=== PATIENT | male | born 1965 | race Caucasian/White ===

== ENCOUNTER 2021-01-02 16:55 | Inpatient (IN) ==
[2021-01-02] MEDS: Divalproex (12 HR) 250 MG TABLET PO SCH (21:07)
[2021-01-02] MEDS: tiZANidine 4 MG TABLET PO SCH (21:08)
[2021-01-02] MEDS: Insulin LISPRO 300 UNITS/3 ML VIAL SUBQ SCH (21:14)
[2021-01-03] MEDS: Insulin LISPRO 300 UNITS/3 ML VIAL SUBQ SCH ×4 (08:36→21:23)
[2021-01-03] MEDS: Aspirin 81 MG TAB.CHEW PO SCH (08:37)
[2021-01-03] MEDS: *HR* Glimepiride 2 MG TABLET PO SCH (08:37)
[2021-01-03] MEDS: Folic Acid 1 MG TABLET PO SCH (08:37)
[2021-01-03] MEDS: rOPINIRole 1 MG TABLET PO SCH (08:37)
[2021-01-03] MEDS: CANAGLIFLOZIN 300 MG PO SCH (08:37)
[2021-01-03] MEDS: tiZANidine 4 MG TABLET PO SCH ×2 (08:37→21:20)
[2021-01-03] MEDS ORDERED: D5% in Water 1,000 ML IVC PRN (13:56)
[2021-01-03] MEDS ORDERED: Dextrose Gel 15 GM/37.5 ML TUBE PO PRN ×2 (13:56)
[2021-01-03] MEDS ORDERED: *HR* Dextrose 50 % in Water (Vial) 50 ML VIAL IVP PRN (13:56)
[2021-01-03] MEDS: Divalproex (12 HR) 250 MG TABLET PO SCH (21:21)
[2021-01-04 06:41] LABS: Hematocrit 43.6 % (37.5-50.1); Hemoglobin 14.5 g/dL (12.9-16.9); Mean Corpuscular HGB Conc 33.3 g/dL (31.6-35.5); Mean Corpuscular Volume 93.2 fL (83.0-100.0); Mean Platelet Volume 9.6 fL (9.4-12.4); Platelet Count 213 K/mcL (140-400); Red Blood Count 4.68 M/mcL (4.19-5.50); Red Cell Distribution Width 11.6 % (11.5-14.5); White Blood Count 8.1 K/mcL (4.3-11.1)
[2021-01-04 07:02] LABS: BUN/Creatinine Ratio 18 (6-26); Blood Urea Nitrogen 17 mg/dL (6-20); Calcium 8.6 mg/dL (8.6-10.3); Carbon Dioxide 28 mEq/L (23-29); Chloride 100 mEq/L (98-107); Glucose 223 mg/dL (70-105); Magnesium 1.9 mg/dL (1.6-2.6); Osmolality,Calculated 286 (280-300); Potassium 4.4 mEq/L (3.5-5.1); Sodium 134 mEq/L (136-145); eGFR For African Americans > 60 (> 60); eGFR For Non-African Americans > 60 (> 60)
[2021-01-04] MEDS: rOPINIRole 1 MG TABLET PO SCH (07:40)
[2021-01-04] MEDS: Insulin LISPRO 300 UNITS/3 ML VIAL SUBQ SCH ×4 (08:27→20:40)
[2021-01-04] MEDS: Aspirin 81 MG TAB.CHEW PO SCH (08:30)
[2021-01-04] MEDS: tiZANidine 4 MG TABLET PO SCH ×2 (08:30→20:39)
[2021-01-04] MEDS: Folic Acid 1 MG TABLET PO SCH (08:31)
[2021-01-04] MEDS: *HR* Glimepiride 2 MG TABLET PO SCH (08:31)
[2021-01-04] MEDS: Insulin DETEMIR 100 UNIT/ML X5UNITS SUBQ SCH ×2 (08:32→20:57)
[2021-01-04] MEDS: CANAGLIFLOZIN 300 MG PO SCH (09:06)
[2021-01-04] MEDS: Divalproex (12 HR) 250 MG TABLET PO SCH (20:39)
[2021-01-05] MEDS: Insulin LISPRO 300 UNITS/3 ML VIAL SUBQ SCH ×4 (07:22→21:58)
[2021-01-05] MEDS: rOPINIRole 1 MG TABLET PO SCH (08:29)
[2021-01-05] MEDS: tiZANidine 4 MG TABLET PO SCH ×2 (08:30→21:58)
[2021-01-05] MEDS: Aspirin 81 MG TAB.CHEW PO SCH (08:30)
[2021-01-05] MEDS: Folic Acid 1 MG TABLET PO SCH (08:30)
[2021-01-05] MEDS: *HR* Glimepiride 2 MG TABLET PO SCH (08:30)
[2021-01-05] MEDS: Insulin DETEMIR 100 UNIT/ML X5UNITS SUBQ SCH ×2 (08:33→21:58)
[2021-01-05] MEDS: CANAGLIFLOZIN 300 MG PO SCH (08:57)
[2021-01-05] MEDS: Divalproex (12 HR) 250 MG TABLET PO SCH (21:58)
[2021-01-06] MEDS: rOPINIRole 1 MG TABLET PO SCH (08:29)
[2021-01-06] MEDS: Folic Acid 1 MG TABLET PO SCH (08:29)
[2021-01-06] MEDS: *HR* Glimepiride 2 MG TABLET PO SCH (08:29)
[2021-01-06] MEDS: Aspirin 81 MG TAB.CHEW PO SCH (08:29)
[2021-01-06] MEDS: tiZANidine 4 MG TABLET PO SCH ×2 (08:29→22:09)
[2021-01-06] MEDS: Insulin LISPRO 300 UNITS/3 ML VIAL SUBQ SCH ×4 (08:30→22:10)
[2021-01-06] MEDS: Insulin DETEMIR 100 UNIT/ML X5UNITS SUBQ SCH ×2 (09:09→22:10)
[2021-01-06] MEDS: CANAGLIFLOZIN 300 MG PO SCH (09:10)
[2021-01-06] MEDS: Divalproex (12 HR) 250 MG TABLET PO SCH (22:08)
[2021-01-07] MEDS: *HR* Glimepiride 2 MG TABLET PO SCH (08:22)
[2021-01-07] MEDS: Folic Acid 1 MG TABLET PO SCH (08:22)
[2021-01-07] MEDS: rOPINIRole 1 MG TABLET PO SCH (08:22)
[2021-01-07] MEDS: Insulin DETEMIR 100 UNIT/ML X5UNITS SUBQ SCH ×2 (08:23→21:22)
[2021-01-07] MEDS: Insulin LISPRO 300 UNITS/3 ML VIAL SUBQ SCH ×4 (08:23→21:22)
[2021-01-07] MEDS: tiZANidine 4 MG TABLET PO SCH ×2 (08:23→21:21)
[2021-01-07] MEDS: CANAGLIFLOZIN 300 MG PO SCH (08:23)
[2021-01-07] MEDS: Aspirin 81 MG TAB.CHEW PO SCH (08:23)
[2021-01-07] MEDS: Divalproex (12 HR) 250 MG TABLET PO SCH (21:20)
[2021-01-07] MEDS: Melatonin 3 MG TABLET PO PRN (21:21)
[2021-01-08] MEDS: Insulin LISPRO 300 UNITS/3 ML VIAL SUBQ SCH ×4 (08:03→20:30)
[2021-01-08] MEDS: tiZANidine 4 MG TABLET PO SCH ×2 (08:04→20:30)
[2021-01-08] MEDS: Aspirin 81 MG TAB.CHEW PO SCH (08:05)
[2021-01-08] MEDS: CANAGLIFLOZIN 300 MG PO SCH (08:05)
[2021-01-08] MEDS: rOPINIRole 1 MG TABLET PO SCH (08:05)
[2021-01-08] MEDS: Folic Acid 1 MG TABLET PO SCH (08:05)
[2021-01-08] MEDS: *HR* Glimepiride 2 MG TABLET PO SCH (08:05)
[2021-01-08 08:26] LABS: Basophils # 0.1 K/mcL (0.0-0.2); Basophils % 0.7 %; Eosinophils # 0.1 K/mcL (0.0-0.6); Hematocrit 44.1 % (37.5-50.1); Hemoglobin 14.6 g/dL (12.9-16.9); Immature Granulocytes % 0.9 % (0-4); Lymphocytes # 2.5 K/mcL (0.6-4.6); Lymphocytes % 36.9 %; Mean Corpuscular HGB Conc 33.1 g/dL (31.6-35.5); Mean Corpuscular Hemoglobin 30.9 pg (28.0-33.3); Mean Corpuscular Volume 93.2 fL (83.0-100.0); Mean Platelet Volume 9.8 fL (9.4-12.4); Monocytes # 0.6 K/mcL (0.0-1.3); Neutrophils # 3.6 K/mcL (1.6-8.9); Platelet Count 205 K/mcL (140-400); Red Blood Count 4.73 M/mcL (4.19-5.50); Red Cell Distribution Width 11.4 % (11.5-14.5); Segmented Neutrophils % 52.5 %; White Blood Count 6.9 K/mcL (4.3-11.1)
[2021-01-08 09:00] LABS: BUN/Creatinine Ratio 16 (6-26); Blood Urea Nitrogen 16 mg/dL (6-20); Calcium 8.4 mg/dL (8.6-10.3); Carbon Dioxide 27 mEq/L (23-29); Chloride 102 mEq/L (98-107); Glucose 173 mg/dL (70-105); Osmolality,Calculated 289 (280-300); Potassium 4.1 mEq/L (3.5-5.1); Sodium 137 mEq/L (136-145); eGFR For African Americans > 60 (> 60); eGFR For Non-African Americans > 60 (> 60)
[2021-01-08] MEDS: Insulin DETEMIR 100 UNIT/ML X5UNITS SUBQ SCH ×2 (09:56→20:30)
[2021-01-08] MEDS: Divalproex (12 HR) 250 MG TABLET PO SCH (20:29)
[2021-01-08] MEDS: Melatonin 3 MG TABLET PO PRN (20:29)
[2021-01-09] MEDS: Insulin LISPRO 300 UNITS/3 ML VIAL SUBQ SCH ×4 (07:37→20:51)
[2021-01-09] MEDS: tiZANidine 4 MG TABLET PO SCH ×2 (08:22→20:50)
[2021-01-09] MEDS: Folic Acid 1 MG TABLET PO SCH (08:22)
[2021-01-09] MEDS: Aspirin 81 MG TAB.CHEW PO SCH (08:22)
[2021-01-09] MEDS: rOPINIRole 1 MG TABLET PO SCH (08:22)
[2021-01-09] MEDS: *HR* Glimepiride 2 MG TABLET PO SCH (08:22)
[2021-01-09] MEDS: Insulin DETEMIR 100 UNIT/ML X5UNITS SUBQ SCH ×2 (08:23→20:52)
[2021-01-09] MEDS: CANAGLIFLOZIN 300 MG PO SCH (09:19)
[2021-01-09] MEDS: Melatonin 3 MG TABLET PO PRN (20:50)
[2021-01-09] MEDS: Divalproex (12 HR) 250 MG TABLET PO SCH (20:50)
[2021-01-10] MEDS: tiZANidine 4 MG TABLET PO SCH ×2 (08:06→20:58)
[2021-01-10] MEDS: rOPINIRole 1 MG TABLET PO SCH (08:06)
[2021-01-10] MEDS: Aspirin 81 MG TAB.CHEW PO SCH (08:06)
[2021-01-10] MEDS: Insulin LISPRO 300 UNITS/3 ML VIAL SUBQ SCH ×4 (08:07→21:25)
[2021-01-10] MEDS: CANAGLIFLOZIN 300 MG PO SCH (08:07)
[2021-01-10] MEDS: Insulin DETEMIR 100 UNIT/ML X5UNITS SUBQ SCH ×2 (08:07→21:49)
[2021-01-10] MEDS: Folic Acid 1 MG TABLET PO SCH (08:07)
[2021-01-10] MEDS: *HR* Glimepiride 2 MG TABLET PO SCH (08:07)
[2021-01-10] MEDS: Divalproex (12 HR) 250 MG TABLET PO SCH (20:58)
[2021-01-10] MEDS: Melatonin 3 MG TABLET PO PRN (20:59)
[2021-01-11] MEDS: Insulin LISPRO 300 UNITS/3 ML VIAL SUBQ SCH ×4 (07:42→21:38)
[2021-01-11] MEDS: Folic Acid 1 MG TABLET PO SCH (07:44)
[2021-01-11] MEDS: rOPINIRole 1 MG TABLET PO SCH (07:44)
[2021-01-11] MEDS: Aspirin 81 MG TAB.CHEW PO SCH (07:44)
[2021-01-11] MEDS: tiZANidine 4 MG TABLET PO SCH ×2 (07:45→21:37)
[2021-01-11] MEDS: CANAGLIFLOZIN 300 MG PO SCH (07:45)
[2021-01-11] MEDS: *HR* Glimepiride 2 MG TABLET PO SCH (07:45)
[2021-01-11] MEDS: Insulin DETEMIR 100 UNIT/ML X5UNITS SUBQ SCH ×2 (08:09→21:37)
[2021-01-11] MEDS: Melatonin 3 MG TABLET PO PRN (21:37)
[2021-01-11] MEDS: Divalproex (12 HR) 250 MG TABLET PO SCH (21:37)
[2021-01-12] MEDS: Folic Acid 1 MG TABLET PO SCH (08:05)
[2021-01-12] MEDS: *HR* Glimepiride 2 MG TABLET PO SCH (08:05)
[2021-01-12] MEDS: Aspirin 81 MG TAB.CHEW PO SCH (08:05)
[2021-01-12] MEDS: rOPINIRole 1 MG TABLET PO SCH (08:05)
[2021-01-12] MEDS: tiZANidine 4 MG TABLET PO SCH ×2 (08:06→21:54)
[2021-01-12] MEDS: Insulin DETEMIR 100 UNIT/ML X5UNITS SUBQ SCH ×2 (08:07→21:55)
[2021-01-12] MEDS: Insulin LISPRO 300 UNITS/3 ML VIAL SUBQ SCH ×4 (08:07→21:56)
[2021-01-12] MEDS: CANAGLIFLOZIN 300 MG PO SCH (08:07)
[2021-01-12] MEDS: Divalproex (12 HR) 250 MG TABLET PO SCH (21:54)
[2021-01-12] MEDS: Melatonin 3 MG TABLET PO PRN (21:58)
[2021-01-13 07:10] VITALS: BP 156/96; PULSE 76; RESP 19; TEMP 98; O2SAT 94
[2021-01-13] MEDS: Insulin LISPRO 300 UNITS/3 ML VIAL SUBQ SCH ×2 (09:45→11:38)
[2021-01-13] MEDS: Insulin DETEMIR 100 UNIT/ML X5UNITS SUBQ SCH (09:46)
[2021-01-13] MEDS: rOPINIRole 1 MG TABLET PO SCH (09:46)
[2021-01-13] MEDS: tiZANidine 4 MG TABLET PO SCH (09:47)
[2021-01-13] MEDS: *HR* Glimepiride 2 MG TABLET PO SCH (09:48)
[2021-01-13] MEDS: Aspirin 81 MG TAB.CHEW PO SCH (09:48)
[2021-01-13] MEDS: Folic Acid 1 MG TABLET PO SCH (09:48)
[2021-01-13] MEDS: CANAGLIFLOZIN 300 MG PO SCH (09:48)
== END 2021-01-13 16:45 | DRG 57 ==
LOC: INPPIK 19:02
PROVIDERS: ADMIT Family Medicine; ATTEND Family Medicine